=== PATIENT | male | born 1980 | race Caucasian/White ===

== ENCOUNTER 2018-05-10 11:31 | Inpatient (IN) | payer OTHER ==
[2018-05-10] MEDS: morphine 4 MG/ML VIAL IV ×2 (13:04→18:20)
[2018-05-10] MEDS: ACETAMINOPHEN 325 MG TAB PO (13:04)
[2018-05-10] MEDS: SODIUM CHLORIDE 0.9% 1L BAG IV* (13:04)
[2018-05-10] MEDS: ONDANSETRON 4 MG INJ IV (13:04)
[2018-05-10 13:20] LABS: ADD MAN DIFF? NO
[2018-05-10 13:41] LABS: ABNORMAL IP MESSAGE 1; BASOPHIL # 0.1 10^3/ul (0.0-0.1); BASOPHILS % 0.4 % (0.0-2.0); EOSINOPHILS # 0.1 10^3/ul (0.0-0.5); EOSINOPHILS % 0.6 % (0.0-7.0); HEMOGLOBIN 15.7 g/dl (14.0-18.0); LYMPHOCYTES # 1.5 10^3/ul (0.8-2.9); LYMPHOCYTES % 10.5 % (15.0-51.0); MEAN CORPUSCULAR HEMOGLOBIN 30.6 pg (29.0-33.0); MEAN CORPUSCULAR HGB CONC 35.7 g/dl (32.0-37.0); MEAN CORPUSCULAR VOLUME 85.8 fl (82.0-101.0); MEAN PLATELET VOLUME 9.5 fl (7.4-10.4); MONOCYTES % 14.3 % (0.0-11.0); NEUTROPHIL # 10.5 10^3/ul (1.6-7.5); NEUTROPHILS % 73.8 % (39.0-77.0); PLATELET COUNT 259 10^3/UL (140-415); POSITIVE DIFF @See below; RED BLOOD COUNT 5.13 10^6/ul (4.70-6.10)
[2018-05-10 13:41] LABS: WHITE BLOOD COUNT 14.3 10^3/ul (4.8-10.8)
[2018-05-10 13:42] LABS: INR 0.96; PARTIAL THROMBOPLASTIN TIME 25.5 Sec (23.0-35.0); PROTIME 12.9 Sec (11.9-14.9)
[2018-05-10 14:04] LABS: ALANINE AMINOTRANSFERASE 37 IU/L (13-69); ALBUMIN 4.9 g/dl (3.3-4.9); ALBUMIN/GLOBULIN RATIO 1.11; ALKALINE PHOSPHATASE 75 IU/L (42-121); ANION GAP 14 (5-13); ASPARTATE AMINO TRANSFERASE 40 IU/L (15-46); BILIRUBIN,INDIRECT 0.9 mg/dl (0-1.1); BILIRUBIN,TOTAL 0.9 mg/dl (0.2-1.3); BLOOD UREA NITROGEN 10 mg/dl (7-20); CALCIUM 9.6 mg/dl (8.4-10.2); CARBON DIOXIDE 25 mmol/L (21-31); CHLORIDE 101 mmol/L (97-110); CREATININE 0.66 mg/dl (0.61-1.24); Estimated GFR > 60 mL/min (>60); GLUCOSE 99 mg/dl (70-220); LIPASE 55 U/L (23-300); POTASSIUM 3.8 mmol/L (3.5-5.1); SODIUM 140 mmol/L (135-144); TOTAL PROTEIN 9.3 g/dl (6.1-8.1)
[2018-05-10 14:16] LABS: TROPONIN-I < 0.012 ng/ml (0.000-0.120)
[2018-05-10] MEDS: PIPER-TAZO 3.375 GM IV (PMX) 100 ML IVPB ×2 (15:03→21:45)
[2018-05-10 15:45] LABS: ADD UMIC YES; UR ASCORBIC ACID NEGATIVE (NEGATIVE); UR BACTERIA FEW /HPF (NONE SEEN); UR BILIRUBIN (Dip) NEGATIVE (NEGATIVE); UR BLOOD (Dip) NEGATIVE (NEGATIVE); UR CLARITY CLEAR (CLEAR); UR COLOR YELLOW (YELLOW); UR GLUCOSE (Dip) NEGATIVE (NEGATIVE); UR KETONES (Dip) TRACE mg/dL (NEGATIVE); UR LEUKOCYTE ESTERASE (Dip) NEGATIVE Leu/ul (NEGATIVE); UR MUCUS FEW /HPF (NONE SEEN); UR NITRITE (Dip) NEGATIVE (NEGATIVE); UR RBC 0 /HPF (0-5); UR SPECIFIC GRAVITY (Dip) 1.026 (1.003-1.030); UR TOTAL PROTEIN (Dip) 1+ mg/dl (NEGATIVE); UR UROBILINOGEN (Dip) 2+ mg/dL (NEGATIVE); UR WBC 2 /HPF (0-5)
[2018-05-10] MEDS ORDERED: ONDANSETRON 4 MG INJ IV ×2 (16:00→17:30)
[2018-05-10] MEDS ORDERED: ACETAMINOPHEN 325 MG TAB PO ×2 (16:00→17:30)
[2018-05-10] MEDS ORDERED: DOCUSATE SODIUM 100 MG CAP PO (17:30)
[2018-05-10] MEDS ORDERED: NACL 0.9% 3 ML SYG IV (17:30)
[2018-05-10] MEDS ORDERED: MAGNESIUM HYDROXIDE 30ML CUP PO (17:30)
[2018-05-10] MEDS ORDERED: BISACODYL (EC) 5 MG TAB PO (17:30)
[2018-05-10] MEDS ORDERED: ACETAMINOPHEN 650 MG SUPP PR (17:30)
[2018-05-10] MEDS ORDERED: morphine 2 MG INJ IV (17:30)
[2018-05-10] MEDS: D5W-0.45 NACL + KCL 20 MEQ 1,000 ML IV (18:20)
[2018-05-10 20:15] LABS: LACTIC ACID 0.8 mmol/L (0.5-2.0)
[2018-05-11] MEDS: morphine 4 MG/ML VIAL IV ×4 (01:20→21:26)
[2018-05-11] MEDS: D5W-0.45 NACL + KCL 20 MEQ 1,000 ML IV ×3 (03:01→22:00)
[2018-05-11] MEDS ORDERED: PANTOPRAZOLE (EC) 40 MG TAB PO (04:33)
[2018-05-11] MEDS: PANTOPRAZOLE 40 MG INJ IV (05:58)
[2018-05-11] MEDS: PIPER-TAZO 3.375 GM IV (PMX) 100 ML IVPB ×3 (05:58→21:31)
[2018-05-11 06:00] LABS: ADD MAN DIFF? NO
[2018-05-11 06:05] LABS: BASOPHILS % 0.4 % (0.0-2.0); EOSINOPHILS # 0.2 10^3/ul (0.0-0.5); EOSINOPHILS % 1.8 % (0.0-7.0); HEMATOCRIT 42.7 % (42.0-52.0); HEMOGLOBIN 14.8 g/dl (14.0-18.0); LYMPHOCYTES # 1.7 10^3/ul (0.8-2.9); LYMPHOCYTES % 18.6 % (15.0-51.0); MEAN CORPUSCULAR HEMOGLOBIN 30.6 pg (29.0-33.0); MEAN CORPUSCULAR HGB CONC 34.7 g/dl (32.0-37.0); MEAN CORPUSCULAR VOLUME 88.2 fl (82.0-101.0); MONOCYTE # 1.1 10^3/ul (0.3-0.9); NEUTROPHILS % 66.8 % (39.0-77.0); PLATELET COUNT 263 10^3/UL (140-415); RED BLOOD COUNT 4.84 10^6/ul (4.70-6.10); RED CELL DISTRIBUTION WIDTH 12.2 % (11.5-14.5)
[2018-05-11 07:04] LABS: HEMOGLOBIN A1C 4.7 % (0-5.9)
[2018-05-11 07:09] LABS: ALANINE AMINOTRANSFERASE 51 IU/L (13-69); ALBUMIN 4.2 g/dl (3.3-4.9); ALBUMIN/GLOBULIN RATIO 1.31; ALKALINE PHOSPHATASE 64 IU/L (42-121); ANION GAP 11 (5-13); ASPARTATE AMINO TRANSFERASE 43 IU/L (15-46); BILIRUBIN,INDIRECT 0.9 mg/dl (0-1.1); BILIRUBIN,TOTAL 0.9 mg/dl (0.2-1.3); BLOOD UREA NITROGEN 8 mg/dl (7-20); CALCIUM 9.2 mg/dl (8.4-10.2); CARBON DIOXIDE 26 mmol/L (21-31); CHLORIDE 106 mmol/L (97-110); CREATININE 0.67 mg/dl (0.61-1.24); Estimated GFR > 60 mL/min (>60); GLUCOSE 99 mg/dl (70-220); POTASSIUM 4.2 mmol/L (3.5-5.1); SODIUM 143 mmol/L (135-144); TOTAL PROTEIN 7.4 g/dl (6.1-8.1)
[2018-05-11] MEDS ORDERED: D5W-0.45 NACL + KCL 20 MEQ 1,000 ML IV (11:43)
[2018-05-12] MEDS: D5W-0.45 NACL + KCL 20 MEQ 1,000 ML IV ×2 (01:16→12:40)
[2018-05-12] MEDS: PANTOPRAZOLE 40 MG INJ IV (06:03)
[2018-05-12] MEDS: metroNIDAZOLE 500 MG/NS (PMX) 100 ML IVPB ×3 (06:04→21:01)
[2018-05-12] MEDS: morphine 4 MG/ML VIAL IV ×2 (06:25→21:10)
[2018-05-12 06:31] LABS: ADD MAN DIFF? NO
[2018-05-12 06:42] LABS: BASOPHILS % 0.6 % (0.0-2.0); EOSINOPHILS # 0.3 10^3/ul (0.0-0.5); EOSINOPHILS % 4.8 % (0.0-7.0); HEMATOCRIT 41.9 % (42.0-52.0); HEMOGLOBIN 14.7 g/dl (14.0-18.0); LYMPHOCYTES # 1.6 10^3/ul (0.8-2.9); LYMPHOCYTES % 26.2 % (15.0-51.0); MEAN CORPUSCULAR HEMOGLOBIN 30.6 pg (29.0-33.0); MEAN CORPUSCULAR HGB CONC 35.1 g/dl (32.0-37.0); MEAN CORPUSCULAR VOLUME 87.1 fl (82.0-101.0); MONOCYTE # 0.9 10^3/ul (0.3-0.9); MONOCYTES % 13.7 % (0.0-11.0); NEUTROPHIL # 3.4 10^3/ul (1.6-7.5); NEUTROPHILS % 54.2 % (39.0-77.0); PLATELET COUNT 277 10^3/UL (140-415); RED BLOOD COUNT 4.81 10^6/ul (4.70-6.10); RED CELL DISTRIBUTION WIDTH 12.1 % (11.5-14.5)
[2018-05-12 06:42] LABS: WHITE BLOOD COUNT 6.2 10^3/ul (4.8-10.8)
[2018-05-12] MEDS: LEVOFLOXACIN 500MG/D5W (PMX) 100 ML IVPB (08:39)
[2018-05-12] MEDS: DEXTROSE 5%-0.9% NACL 1,000 ML IV (14:53)
[2018-05-12] MEDS: DIPHENHYDRAMINE 50 MG INJ IV ×2 (23:31)
[2018-05-13] MEDS: DEXTROSE 5%-0.9% NACL 1,000 ML IV ×3 (05:11→23:45)
[2018-05-13] MEDS: PANTOPRAZOLE 40 MG INJ IV (05:11)
[2018-05-13] MEDS: metroNIDAZOLE 500 MG/NS (PMX) 100 ML IVPB ×3 (05:11→21:47)
[2018-05-13 06:06] LABS: ADD MAN DIFF? NO
[2018-05-13 06:13] LABS: WHITE BLOOD COUNT 6.5 10^3/ul (4.8-10.8)
[2018-05-13 06:13] LABS: BASOPHILS % 0.6 % (0.0-2.0); EOSINOPHILS # 0.2 10^3/ul (0.0-0.5); EOSINOPHILS % 2.5 % (0.0-7.0); HEMOGLOBIN 14.8 g/dl (14.0-18.0); LYMPHOCYTES # 1.8 10^3/ul (0.8-2.9); LYMPHOCYTES % 27.2 % (15.0-51.0); MEAN CORPUSCULAR HEMOGLOBIN 30.4 pg (29.0-33.0); MEAN CORPUSCULAR HGB CONC 35.2 g/dl (32.0-37.0); MEAN CORPUSCULAR VOLUME 86.2 fl (82.0-101.0); MEAN PLATELET VOLUME 9.9 fl (7.4-10.4); MONOCYTE # 0.8 10^3/ul (0.3-0.9); MONOCYTES % 12.4 % (0.0-11.0); NEUTROPHIL # 3.7 10^3/ul (1.6-7.5); NEUTROPHILS % 56.8 % (39.0-77.0); PLATELET COUNT 308 10^3/UL (140-415); RED BLOOD COUNT 4.87 10^6/ul (4.70-6.10); RED CELL DISTRIBUTION WIDTH 11.9 % (11.5-14.5)
[2018-05-13 06:44] LABS: ANION GAP 10 (5-13); BLOOD UREA NITROGEN 9 mg/dl (7-20); CALCIUM 9.3 mg/dl (8.4-10.2); CARBON DIOXIDE 25 mmol/L (21-31); CHLORIDE 108 mmol/L (97-110); CREATININE 0.65 mg/dl (0.61-1.24); Estimated GFR > 60 mL/min (>60); GLUCOSE 82 mg/dl (70-220); POTASSIUM 3.8 mmol/L (3.5-5.1); SODIUM 143 mmol/L (135-144)
[2018-05-13 07:09] LABS: MAGNESIUM 2.1 mg/dl (1.7-2.5)
[2018-05-13 07:09] LABS: PHOSPHORUS 4.2 mg/dl (2.5-4.9)
[2018-05-13] MEDS: LEVOFLOXACIN 500MG/D5W (PMX) 100 ML IVPB (08:30)
[2018-05-13] MEDS: ZOLPIDEM 5 MG TAB PO (21:52)
[2018-05-14] MEDS: PANTOPRAZOLE 40 MG INJ IV (05:43)
[2018-05-14] MEDS: metroNIDAZOLE 500 MG/NS (PMX) 100 ML IVPB ×2 (05:43→14:29)
[2018-05-14] MEDS: LEVOFLOXACIN 500MG/D5W (PMX) 100 ML IVPB (09:02)
== END 2018-05-14 16:20 | disposition home or self-care (01) | DRG 392 ==
LOC: FTE 11:31 → PP2 15:44
DX: K57.32 Diverticulitis of large intestine without perforation or abscess without bleeding (principal); G47.00 Insomnia, unspecified; K76.0 Fatty (change of) liver, not elsewhere classified; N28.1 Cyst of kidney, acquired; D72.819 Decreased white blood cell count, unspecified
CPT/HCPCS: 36415; 71045; 74176; 76705; 80048; 80053; 81001; 83036; 83605; 83690; 83735; 84100; 84484; 85025; 85610; 85730; 87040; 87086; 93005; 96365; 96375; 99285-25

== ENCOUNTER 2019-01-27 10:52 | Emergency (ER) | payer OTHER ==
[2019-01-27] MEDS: LACTATED RINGER'S 1,000 ML IV (11:33)
[2019-01-27] MEDS: KETOROLAC 15 MG INJ IV (11:33)
[2019-01-27] MEDS: ONDANSETRON 4 MG INJ IV (11:33)
[2019-01-27 11:41] LABS: ADD MAN DIFF? NO
[2019-01-27 11:43] LABS: WHITE BLOOD COUNT 7.6 10^3/ul (4.8-10.8)
[2019-01-27 11:43] LABS: BASOPHIL # 0.1 10^3/ul (0.0-0.1); BASOPHILS % 0.9 % (0.0-2.0); EOSINOPHILS # 0.2 10^3/ul (0.0-0.5); HEMATOCRIT 48.7 % (42.0-52.0); HEMOGLOBIN 17.6 g/dl (14.0-18.0); LYMPHOCYTES # 1.8 10^3/ul (0.8-2.9); LYMPHOCYTES % 24.1 % (15.0-51.0); MEAN CORPUSCULAR HEMOGLOBIN 30.6 pg (29.0-33.0); MEAN CORPUSCULAR HGB CONC 36.1 g/dl (32.0-37.0); MEAN CORPUSCULAR VOLUME 84.7 fl (82.0-101.0); MEAN PLATELET VOLUME 9.7 fl (7.4-10.4); MONOCYTE # 0.7 10^3/ul (0.3-0.9); MONOCYTES % 8.6 % (0.0-11.0); NEUTROPHIL # 4.8 10^3/ul (1.6-7.5); NEUTROPHILS % 63.1 % (39.0-77.0); PLATELET COUNT 289 10^3/UL (140-415); RED BLOOD COUNT 5.75 10^6/ul (4.70-6.10); RED CELL DISTRIBUTION WIDTH 12.2 % (11.5-14.5)
[2019-01-27 12:02] LABS: INR 0.95; PROTIME 12.8 Sec (11.9-14.9)
[2019-01-27 12:03] LABS: ALANINE AMINOTRANSFERASE 113 IU/L (13-69); ALBUMIN 4.3 g/dl (3.3-4.9); ALBUMIN/GLOBULIN RATIO 1.04; ALKALINE PHOSPHATASE 98 IU/L (42-121); ANION GAP 9 (5-13); ASPARTATE AMINO TRANSFERASE 62 IU/L (15-46); BILIRUBIN,INDIRECT 0.8 mg/dl (0-1.1); BILIRUBIN,TOTAL 0.8 mg/dl (0.2-1.3); BLOOD UREA NITROGEN 11 mg/dl (7-20); CALCIUM 9.8 mg/dl (8.4-10.2); CARBON DIOXIDE 27 mmol/L (21-31); CHLORIDE 104 mmol/L (97-110); CREATININE 0.88 mg/dl (0.61-1.24); Estimated GFR > 60 mL/min (>60); GLUCOSE 100 mg/dl (70-220); LIPASE 90 U/L (23-300); POTASSIUM 4.1 mmol/L (3.5-5.1); SODIUM 140 mmol/L (135-144); TOTAL PROTEIN 8.4 g/dl (6.1-8.1)
== END 2019-01-27 13:22 | disposition home or self-care (01) ==
LOC: E/R 10:52
DX: R10.31 Right lower quadrant pain (principal); R11.2 Nausea with vomiting, unspecified
CPT/HCPCS: 36415; 74176; 80053; 83690; 85025; 85610; 85730; 96374; 96375; 99285-25